=== PATIENT | male | born 1945 | race African-American/Black ===

== ENCOUNTER 2016-09-06 08:38 | Day surgery (SDC) | payer OTHER, MEDICARE ==
[~2016-09-06] VITALS: Ht 175.3 cm; Wt 83.9 kg
[~2016-09-06 08:38] MED LIST: ACETYLCHOLINE CHLORIDE 1:100 20 MG/2 ML INTRAOCULAR KIT. ONE; AMLO5TAB2 PO; ASPI81TA2 PO; BALANCED SALT IRRIG OPHTH SOLN 15 ML BOTTLE. ONE; BUPIVACAINE MPF 0.75% IRR ONE; CHONDROIT-SOD-HYALURONATE KIT. ONE; CIPROFLOXACIN 0.3% OPHTH SOLUTION 5ML BOTTLE. OD ONE; CRESTOR5 MG PO; DEXAMETHASONE SOD PHOS 4 MG/ML VIAL ONE; EPINEPHRINE IRR ONE; GENTAMICIN SULFATE 80 MG/2 ML VIAL. ONE; HYDR-971 PO; HYDROmorphone 2 MG/ML VIAL IV PRN; IV RINGERS,LACTATED 1000ML 1,000 ML IV SCH; LIDOCAINE 1% 1 ML SYRINGE. ID PRN; LIDOCAINE 1% IRR ONE; LISI-338 PO; MORPHINE SULFATE 2 MG/ML DISP.SYRIN. IV PRN; NEO/POLYMYX/DEXAMETH OPHTH OINTMENT 3.5GM TUBE. ONE; ONDANSETRON PF 4 MG/2 ML VIAL. IV PRN; PROCHLORPERAZINE 10 MG/2 ML VIAL. IV PRN; PROPARACAINE 0.5% OPHTH SOLUTION 15ML BOTTLE. OD ONE; TAMS0.4C97 PO; [UNRECOGNIZED DRUG - OTHER] IRR ONE; fentaNYL PF VIAL 100 MCG/2 ML VIAL IV PRN
[2016-09-06] MEDS ORDERED: LIDOCAINE 2% JELLY 6ML IN APPLICATOR. ONE (08:59)
[2016-09-06] MEDS: CYCLOPENTOLATE 1% OPTH SOLUTION 2ML BOTTLE. OD SCH ×3 (09:27→09:39)
[2016-09-06] MEDS: PHENYLEPHRINE 2.5% OPHTH SOLUTION 2ML BOTTLE. OD SCH ×3 (09:28→09:38)
[2016-09-06] MEDS ORDERED: IV RINGERS,LACTATED 1000ML 1,000 ML IV ONE (09:30)
[2016-09-06] MEDS ORDERED: LIDOCAINE 2% PF Vial for OR 5 ML VIAL. ONE (10:19)
[2016-09-06] MEDS ORDERED: LIDOCAINE 2% 20 ML VIAL. ONE (10:20)
[2016-09-06] MEDS ORDERED: LIDOCAINE 1% PF 2 ML VIAL. ONE (10:21)
[2016-09-06] MEDS ORDERED: TETRACAINE 0.5% OPHTH SOLUTION 4ML BOTTLE. OD ONE (10:30)
[2016-09-06] MEDS ORDERED: PROPOFOL 20 ML IV ONE (10:51)
[2016-09-06] MEDS ORDERED: LIDOCAINE 1% PF 5 ML VIAL. ONE (11:00)
[2016-09-06 11:11] VITALS: BP 145/68
[2016-09-06] MEDS ORDERED: DEXAMETHASONE 0.1% OPHTH SOLUTION 5ML BOTTLE. OD SCH (11:20)
--- NOTE | 2016-09-06 11:21 | PDOC4 ---
Operative Note Operative Note PREOPERATIVE DIAGNOSIS: Cataract, RIGHT EYE POSTOPERATIVE DIAGNOSIS: Cataract, RIGHT eye OPERATION: Phacoemulsification and posterior chamber intraocular lens implantation, RIGHT eye. ANESTHESIA: Topical/ local anesthesia SURGEON: Nida Gunter M.D. COMPLICATIONS: None. PROCEDURE: The patient was brought to the operating room. Right eye was prepped and draped in usual sterile conditions. Topical Lidocaine gel was applied to achieve topical anesthesia. Right eye was prepped and draped in usual sterile conditions. Lid speculum was inserted to open the Right eye. With keratome knife, 3.5 mm, limbal, clear corneal incision was placed, partial thickness at 12 o'clock position. With a keratome corneal flap was lifted and anterior chamber was entered to make 3.5 mm clear corneal incision. Viscoat was injected in the anterior chamber. With cystotome, anterior capsulorrhexis was performed without complications. Hydrodissection was done to loosen the cataractous lens from the capsule. Using phacoemulsification tip inserted into the anterior chamber, the lens was sculpted and removed in 45 seconds without any complications. The remaining of lens cortex were aspirated out using irrigation aspiration apparatus. Posterior capsule and capsulorrhexis were intact. Provisc was injected into the capsular bag to push back the posterior capsule and to deepen the chamber. Posterior chamber intraocular lens was loaded on its stock patch sawyer and it was slipped into the capsular bag. It was rotated with Sinskey hook to position it in the center. Excess of Viscoat and Provisc were aspirated out using irrigation and aspiration apparatus. Miochol was injected to constrict the pupil to 3 mm size round pupil. BSS was injected in the anterior chamber to wash the anterior chamber. Some more BSS was injected into the corneal lip of the wound to make a watertight wound closure. More BSS was injected in the anterior chamber. The wound was checked. There was no leakage noticed. Half cc of Gentamicin/Decadron was injected sub conjunctivally in nasal inferior fornix. Subconjunctival hemorrhage developed at the injection site. Lid speculum was removed. Maxitrol eye ointment was placed into the right eye. Right eye was protected with patch and shield and the patient left the operating room in good condition. There were no complications. NIDA GUNTER MD September 06, 2016 11:21
[2016-09-06] MEDS ORDERED: DEXA5DRO OP (11:28)
[2016-09-06] MEDS ORDERED: CIPR10DR OD (11:29)
[2016-09-06] MEDS ORDERED: ACET500T33 PO (11:30)
== END 2016-09-06 11:57 | disposition home or self-care (01) ==
LOC: SURG 08:38
PROVIDERS: ATTEND Ophthalmology
DX: H26.9 Unspecified cataract (principal); I25.10 Atherosclerotic heart disease of native coronary artery without angina pectoris; M19.90 Unspecified osteoarthritis, unspecified site; I10 Essential (primary) hypertension; Z87.442 Personal history of urinary calculi; Z87.891 Personal history of nicotine dependence; Z72.0 Tobacco use
CPT/HCPCS: 66982; C1780; J0171; J1100; J1580; J2704; J3490

== ENCOUNTER → 2017-02-06 | Outpatient (CLI) | payer OTHER, MEDICARE ==
[~2017-02-06] MED LIST changes: +ACET500T33 PO; -ACETYLCHOLINE CHLORIDE 1:100 20 MG/2 ML INTRAOCULAR KIT. ONE; +ASPI-630 PO; -ASPI81TA2 PO; -BALANCED SALT IRRIG OPHTH SOLN 15 ML BOTTLE. ONE; -BUPIVACAINE MPF 0.75% IRR ONE; -CHONDROIT-SOD-HYALURONATE KIT. ONE; +CIPR10DR OD; -CIPROFLOXACIN 0.3% OPHTH SOLUTION 5ML BOTTLE. OD ONE; +DEXA5DRO OP; -DEXAMETHASONE SOD PHOS 4 MG/ML VIAL ONE; -EPINEPHRINE IRR ONE; -GENTAMICIN SULFATE 80 MG/2 ML VIAL. ONE; -HYDROmorphone 2 MG/ML VIAL IV PRN; -IV RINGERS,LACTATED 1000ML 1,000 ML IV SCH; -LIDOCAINE 1% 1 ML SYRINGE. ID PRN; -LIDOCAINE 1% IRR ONE; -MORPHINE SULFATE 2 MG/ML DISP.SYRIN. IV PRN; -NEO/POLYMYX/DEXAMETH OPHTH OINTMENT 3.5GM TUBE. ONE; -ONDANSETRON PF 4 MG/2 ML VIAL. IV PRN; -PROCHLORPERAZINE 10 MG/2 ML VIAL. IV PRN; -PROPARACAINE 0.5% OPHTH SOLUTION 15ML BOTTLE. OD ONE; -[UNRECOGNIZED DRUG - OTHER] IRR ONE; -fentaNYL PF VIAL 100 MCG/2 ML VIAL IV PRN
[2017-02-06 08:57] LABS: BASO % 1 % (0-3); EOS % 3 % (0-3); HEMATOCRIT 42.1 % (39.0-53.0); HEMOGLOBIN 13.8 g/dL (13.0-17.5); LYMPH # 1.3 x10^3/uL (1.0-4.8); LYMPH % 30 % (24-48); MEAN CORPUSCULAR HEMOGLOBIN 31 pg (25-35); MEAN CORPUSCULAR HGB CONC 33 g/dL (31-37); MEAN CORPUSCULAR VOLUME 94 fL (79-100); MONO % 14 % (0-9); NEUT % 51 % (31-73); PLATELET COUNT 218 x10^3/uL (140-400); RED BLOOD COUNT 4.49 x10^6/uL (4.30-5.70); RED CELL DISTRIBUTION WIDTH 13.2 % (11.5-14.5); WHITE BLOOD COUNT 4.2 x10^3/uL (4.0-11.0)
[2017-02-06 10:34] LABS: FREE T4 0.93 ng/dL (0.76-1.46)
[2017-02-06 10:54] LABS: CALCIUM 9.5 mg/dL (8.5-10.1); GFR 89.1; POTASSIUM 4.1 mmol/L (3.5-5.1); TOTAL BILIRUBIN 0.5 mg/dL (0.2-1.0); TOTAL PROTEIN 8.2 g/dL (6.4-8.2)
[2017-02-06 10:55] LABS: CHOLESTEROL/HDL RATIO 3.7
== END | disposition home or self-care (01) ==
LOC: SPEC 08:17
PROVIDERS: ATTEND Family Medicine
DX: Z12.5 Encounter for screening for malignant neoplasm of prostate (principal); I10 Essential (primary) hypertension
CPT/HCPCS: 36415; 80053; 80061; 83036; 84439; 84443; 85025

== ENCOUNTER → 2017-08-15 | Outpatient (CLI) | payer OTHER, MEDICARE ==
[2017-08-15] MEDS: IOHEXOL 300 MG/ML 10ML VIAL. IJ (09:51)
[2017-08-15] MEDS: BUPIVACAINE 0.5% 50 ML VIAL. IJ (09:52)
[2017-08-15] MEDS: methylPREDNISolone ACETATE 80 MG/ML VIAL. INJ (09:52)
== END | disposition home or self-care (01) ==
LOC: RAD 08:12
DX: M25.551 Pain in right hip (principal); I25.10 Atherosclerotic heart disease of native coronary artery without angina pectoris; I10 Essential (primary) hypertension; M19.90 Unspecified osteoarthritis, unspecified site; F17.200 Nicotine dependence, unspecified, uncomplicated; M16.11 Unilateral primary osteoarthritis, right hip; Z95.1 Presence of aortocoronary bypass graft; Z87.442 Personal history of urinary calculi
CPT/HCPCS: 20605; 77002; J1040; J3490; Q9967

== ENCOUNTER → 2018-03-07 | Outpatient (CLI) | payer OTHER, MEDICARE ==
[2017-03-02 11:59] VITALS: BP 155/79
[~2018-03-07] MED LIST changes: -AMLO5TAB2 PO; +AMLO5TAB7 PO; +AMLODIPINE PO; +BENAZEPRIL PO
[2018-03-07 10:41] LABS: BASO % 1 % (0-3); EOS # 0.1 x10^3/uL (0.0-0.7); EOS % 2 % (0-3); HEMATOCRIT 41.9 % (39.0-53.0); HEMOGLOBIN 14.2 g/dL (13.0-17.5); LYMPH # 0.6 x10^3/uL (1.0-4.8); LYMPH % 16 % (24-48); MEAN CORPUSCULAR HEMOGLOBIN 31 pg (25-35); MEAN CORPUSCULAR HGB CONC 34 g/dL (31-37); MEAN CORPUSCULAR VOLUME 93 fL (79-100); MONO # 0.4 x10^3/uL (0.0-1.1); MONO % 10 % (0-9); NEUT # 2.7 x10^3uL (1.8-7.7); NEUT % 72 % (31-73); PLATELET COUNT 209 x10^3/uL (140-400); RED BLOOD COUNT 4.51 x10^6/uL (4.30-5.70); WHITE BLOOD COUNT 3.8 x10^3/uL (4.0-11.0)
[2018-03-07 11:05] LABS: GFR 88.9; POTASSIUM 4.1 mmol/L (3.5-5.1); TOTAL BILIRUBIN 0.7 mg/dL (0.2-1.0); TOTAL PROTEIN 8.2 g/dL (6.4-8.2); URIC ACID 4.8 mg/dL (3.5-7.2)
[2018-03-07 11:10] LABS: CHOLESTEROL/HDL RATIO 3.1
[2018-03-07 12:11] LABS: BILIRUBIN,URINE NEGATIVE (NEG); CLARITY,URINE CLEAR; COLOR,URINE YELLOW; NITRITE,URINE NEGATIVE (NEG); PH,URINE 5.5; PROTEIN,URINE NEGATIVE (NEG-TRACE)
[2018-03-07 12:29] LABS: BACTERIA,URINE 0 /HPF (0-FEW); WBC,URINE RARE /HPF (0-4)
[2018-03-07 19:15] LABS: HEMOGLOBIN A1C 5.7 % (4.8-5.6)
== END | disposition home or self-care (01) ==
LOC: SPEC 10:17
PROVIDERS: ATTEND Family Medicine
DX: Z12.5 Encounter for screening for malignant neoplasm of prostate (principal); Z12.11 Encounter for screening for malignant neoplasm of colon; I10 Essential (primary) hypertension; M17.10 Unilateral primary osteoarthritis, unspecified knee; M25.551 Pain in right hip; I25.10 Atherosclerotic heart disease of native coronary artery without angina pectoris; M19.90 Unspecified osteoarthritis, unspecified site; F17.200 Nicotine dependence, unspecified, uncomplicated; Z95.1 Presence of aortocoronary bypass graft; Z95.5 Presence of coronary angioplasty implant and graft
CPT/HCPCS: 36415; 80053; 80061; 81001; 82306; 82607; 83036; 83880; 84443; 84550; 85025; G0103

== ENCOUNTER → 2018-03-13 | Outpatient (CLI) | payer OTHER, MEDICARE ==
[2017-03-02 11:59] VITALS: BP 155/79
[~2018-03-13] MED LIST changes: +AMLO1TAB95 PO; +IOHEXOL 180 MG/ML 10 ML VIAL. ONE; +TRAM50TA PO
--- NOTE | 2018-03-13 17:26 | PAIN ---
DATE OF SERVICE: 03/13/2018 INITIAL CONSULTATION FOR PAIN CLINIC CHIEF COMPLAINT: Right hip and lower extremity pain. HISTORY OF PRESENT ILLNESS: The patient is a 72-year-old male who presents with history of pain in the right hip with walking, standing for about 2 years now. The patient reports it began gradually, not a result of any specific injury or action he is aware of, worse in the right hip with walking, standing, especially with climbing stairs or putting all his weight on one foot such as stepping up on a curb. The patient reports it does not awaken him from sleep at night. It does not affect his bowel or bladder control, but does affect his ability to walk significantly. It is getting worse over time. The patient reports he has had some cortisone injections in the past, which helped. Recently, he had one in his left knee, which was helpful as well, but over the hip, he did have a cortisone injection in 12/2017, which helped temporarily for about one month. The patient reports again much worse with walking, standing, putting all his weight on his right leg with some radiation to the right groin as well, mostly in the deep hip itself. The patient reports it is throbbing, tingling with some aching quality, again worse with walking, standing, better with sitting or lying down, does not awaken him from sleep at night. The patient's x-ray show with respect to the right hip advanced degenerative joint disease with moderate to severe arthritic changes in the right hip itself. The patient's disability rate 0-10, 10 being the worst, is a 7 with family and home responsibilities, recreation, social activity and occupation, 3 with sexual behavior, 1 with self care and 1 with life support activities. The patient reports no symptoms on the left side as well. PAST MEDICAL HISTORY: Significant for hypertension, arthritis, coronary artery disease. PREVIOUS SURGERY: Include cardiac bypass and a fractured jaw, which was ORIF in 1959. CURRENT MEDICATIONS: Include tramadol, and amlodipine. ALLERGIES: THE PATIENT IS ALLERGIC TO PENICILLIN. FAMILY HISTORY: Significant for no major medical problems or conditions he is aware of. SOCIAL HISTORY: The patient does not drink alcohol, does not smoke, does not use any illegal, illicit or recreational drugs. He is and lives with his spouse, has one child, living at home, lives locally in [place], [place]. REVIEW OF SYSTEMS: The patient's review of systems is positive for those items mentioned in history of present illness. All systems reviewed and otherwise negative. It is complete, full and well documented on the patient's chart. PHYSICAL EXAMINATION: VITAL SIGNS: The patient's blood pressure is 125/95, pulse 65, respirations 16, temperature 97.2 degrees Fahrenheit, height is 5 feet 9 inches, weight 171 pounds. GENERAL: The patient is awake, alert, oriented, appropriate, very pleasant demeanor. HEENT: Head shows normocephalic, atraumatic. Extraocular movements are intact and symmetrical. Oral cavity: Mucous membranes moist and pink. Dentition is intact. NECK: Shows anterior throat supple without palpable lymphadenopathy noted. Swallow reflex symmetrical. CHEST: Shows normal on inspection. Breath sounds clear to auscultation bilaterally. HEART: Shows S1, S2 clear. No murmurs auscultated. ABDOMEN: Soft, nontender, nondistended. No palpable organomegaly is noted. No rebound or guarding demonstrated. BACK: Shows spine grossly in the midline, normal appearing thoracic kyphosis and lumbar lordotic curvature. Lumbar paraspinous muscle shows symmetrical on inspection. On palpation shows some moderate tenderness only diffusely in the low lumbar distribution without radiation. The patient's back shows good rotational motion both extension and flexion, right and left lateral rotation without significant difficulty. EXTREMITIES: The patient's lower extremities show deep tendon reflexes at 1+ in the patellar and tendo-calcaneus tendons. Motor exam is strong with 5/5 dorsiflexion, extension, quadriceps and hamstring flexion. Peripheral pulses are 1+ posterior tibial. No peripheral edema is noted bilaterally. The patient's Gaenslen's maneuver is negative bilaterally. Foreign's maneuver, however, is positive on the right with external rotation and posterior displacement of the right hip with significant pain in the joint itself, left side is negative. The patient is able to stand, stand on his toes without significant difficulty, walks with a significant antalgic gait; however, does appear to favor the right lower extremity fairly significantly. He is not using any assistive devices to ambulate, however. SKIN: Warm and dry, good turgor. No edema, sores, rashes or bruising. IMPRESSION: This is a 72-year-old male with, 1. Approximate 2-year history of pain right hip with radiation to the groin and leg as noted. 2. X-rays of the right hip as noted. 3. Hypertension. 4. Arthritis. 5. Coronary artery disease. PLAN: Options were discussed with the patient including conservative medical management, physical therapy, interventional techniques. He would like to pursue interventional techniques. We discussed an intra-articular joint injection with Monovisc as recommended through his orthopedic surgeon. The patient would like to proceed with this. Risks were discussed including but not limited to bleeding, infection, possibility of intravascular injection sequelae, spread of local anesthetic and numbness, exposure to fluoroscopy as well as poor results regarding pain control. The patient understands and wished to proceed. The patient will return to clinic in approximately 4 weeks or as necessary. He was counseled on activity level as well as side effects to be aware of. DIAGNOSIS: Primary osteoarthritis, right hip joint with right hip joint pain. PROCEDURE: Right intraarticular hip joint injection with Monovisc under sterile prep and drape using local anesthetic. MEDICATION INJECTED: A total of 4 mL of Monovisc and total of 2 mL of Isovue for contrast. CONDITION AT DISCHARGE: Stable. The patient tolerated the procedure well, had no complications. TY GOMEZ MD DR: FRED/razia JOB#: [id number] / [id number] MATTHEW Chaparro MD
== END | disposition home or self-care (01) ==
LOC: PNCL 08:05
PROVIDERS: ATTEND Anesthesiology
DX: M16.11 Unilateral primary osteoarthritis, right hip (principal); I10 Essential (primary) hypertension; I25.10 Atherosclerotic heart disease of native coronary artery without angina pectoris; Z95.1 Presence of aortocoronary bypass graft; Z98.890 Other specified postprocedural states; Z79.899 Other long term (current) drug therapy; Z88.0 Allergy status to penicillin; Z88.8 Allergy status to other drugs, medicaments and biological substances
CPT/HCPCS: 20610; 77002; Q9965

== ENCOUNTER 2018-06-03 11:29 | Emergency (ER) | payer OTHER, MEDICARE ==
[~2018-06-03] VITALS: Ht 175.3 cm; Wt 81.6 kg
[~2018-06-03 11:29] MED LIST changes: +AMLO5TAB10 PO; -AMLO5TAB7 PO; +HYDR-3164 PO; -HYDR-971 PO; -IOHEXOL 180 MG/ML 10 ML VIAL. ONE
[2018-06-03] MEDS ORDERED: POLY17PO29 PO (12:56)
[2018-06-03 12:57] VITALS: BP 137/62
--- NOTE | 2018-06-03 12:57 | PHYS DOC ---
Past Medical History Past Medical History: CAD, High Cholesterol, Hypertension Additional Past Medical Histor: "need hip replacement"- R hip Past Surgical History: Coronary Bypass Surgery Additional Past Surgical Histo: STENT PLACEMENT Additional Information: Denies smoking Alcohol Use: None Drug Use: None Adult General Chief Complaint Chief Complaint: CONSTIPATION HPI HPI Patient is a 73 year old male who presents with complaining of constipation. Patient states he usually has bowel movement every 2 or 3 days. Patient states he took Percocet recently for hip pain and for the last 10 days was not able to have a bowel movement. Patient complaining of anal pain and bleeding while he while he strains himself to have a bowel movement and even he took Laxative today, he was not able to have a bowel movement. Patient complaining of discomfort feeling in his abdomen without nausea and vomiting, fever and chills , urinary symptom. Review of Systems Review of Systems Constitutional: Denies fever or chills [] Eyes: Denies change in visual acuity, redness, or eye pain [] HENT: Denies nasal congestion or sore throat [] Respiratory: Denies cough or shortness of breath [] Cardiovascular: No additional information not addressed in HPI [] GI: Reports constipation and abdominal pain, denies nausea, vomiting, bloody stools or diarrhea [] : Denies dysuria or hematuria [] Musculoskeletal: Denies back pain or joint pain [] Integument: Denies rash or skin lesions [] Neurologic: Denies headache, focal weakness or sensory changes [] Endocrine: Denies polyuria or polydipsia [] All other systems were reviewed and found to be within normal limits, except as documented in this note. Allergies Allergies Allergies Coded Allergies Type Severity Reaction Last Updated Verified Penicillins Allergy Intermediate rash 09/06/16 Yes esomeprazole Allergy Intermediate rash 09/06/16 Yes Physical Exam Physical Exam Constitutional: Well developed, well nourished, moderate acute distress, non- toxic appearance. [] HENT: Normocephalic, atraumatic, oropharynx moist. Eyes: PERRLA, EOMI, conjunctiva normal, no discharge. [] Neck: Normal range of motion, no tenderness, supple, no stridor. [] Cardiovascular:Heart rate regular rhythm, no murmur [] Lungs & Thorax: Bilateral breath sounds clear to auscultation [] Abdomen: Bowel sounds hyperactive, mildly distended with gas,, soft, no tenderness, no masses, no pulsatile masses. Rectal exam with present of subassemblies wirer showed inflamed anal area with very hard stool in the rectum, patient was not able to tolerate removing the stool.] Skin: Warm, dry, no erythema, no rash. [] Back: No tenderness, no CVA tenderness. [] Extremities: No tenderness, no cyanosis, no clubbing, ROM intact, no edema. [] Neurologic: Alert and oriented X 3, normal motor function, normal sensory function, no focal deficits noted. [] Psychologic: Affect normal, judgement normal, mood normal. [] Current Patient Data Vital Signs Vital Signs Date Time Temp Pulse Resp B/P (MAP) Pulse Ox O2 Delivery O2 Flow Rate FiO2 06/03/18 11:40 98.1 66 16 108/60 (76) 96 Room Air 98.1 EKG EKG [] Radiology/Procedures Radiology/Procedures [] Course & Med Decision Making Course & Med Decision Making Evaluation of patient in ER showed 72-year-old male patient presented to ER with constipation after taking pain medication. Patient had very hard stool in rectum and had enema with milk of molasses with having a large bowel movement and improvement of his condition. Plan discharge patient home to diagnose of constipation and prescription of MiraLAX. Dragon Disclaimer Dragon Disclaimer This electronic medical record was generated, in whole or in part, using a voice recognition dictation system. Departure Departure Impression: Primary Impression: Fecal impaction in rectum Additional Impressions: Constipation Anal or rectal pain Disposition: 01 HOME, SELF-CARE (@1252) Condition: IMPROVED Referrals: RIKY MARTINO (PCP) Patient Instructions: Constipation, Adult, Fecal Impaction, Sitz Bath Additional Instructions: Drink plenty of liquids Follow-up with your primary care physician in 3-5 days Return to ER if not getting better Scripts Polyethylene Glycol 3350 (MIRALAX) 17 Gm Powd.pack 1 PACKET PO DAILY, #30 PACKET 0 Refills Prov: RUPESH GRANADOS MD 06/03/18 Problem Qualifiers RUPESH GRANADOS MD Jun 03, 2018 12:57
== END 2018-06-03 13:06 | disposition home or self-care (01) ==
LOC: ER 11:29
DX: K59.00 Constipation, unspecified (principal); K62.89 Other specified diseases of anus and rectum; E78.00 Pure hypercholesterolemia, unspecified; I10 Essential (primary) hypertension; Z95.5 Presence of coronary angioplasty implant and graft; I25.10 Atherosclerotic heart disease of native coronary artery without angina pectoris; Z95.1 Presence of aortocoronary bypass graft; Z88.0 Allergy status to penicillin; Z88.8 Allergy status to other drugs, medicaments and biological substances
CPT/HCPCS: 99284

== ENCOUNTER → 2018-07-25 | Outpatient (CLI) | payer OTHER, MEDICARE ==
[~2018-07-25] MED LIST changes: +POLY17PO29 PO
[2018-07-25 08:12] LABS: BASO # 0.1 x10^3/uL (0.0-0.2); BASO % 2 % (0-3); EOS # 0.2 x10^3/uL (0.0-0.7); EOS % 4 % (0-3); HEMATOCRIT 42.5 % (39.0-53.0); HEMOGLOBIN 13.6 g/dL (13.0-17.5); LYMPH # 1.1 x10^3/uL (1.0-4.8); LYMPH % 27 % (24-48); MEAN CORPUSCULAR HEMOGLOBIN 30 pg (25-35); MEAN CORPUSCULAR HGB CONC 32 g/dL (31-37); MEAN CORPUSCULAR VOLUME 94 fL (79-100); MONO # 0.5 x10^3/uL (0.0-1.1); MONO % 12 % (0-9); NEUT # 2.2 x10^3uL (1.8-7.7); NEUT % 55 % (31-73); PLATELET COUNT 197 x10^3/uL (140-400); RED BLOOD COUNT 4.52 x10^6/uL (4.30-5.70); RED CELL DISTRIBUTION WIDTH 13.9 % (11.5-14.5)
[2018-07-25 08:14] LABS: BILIRUBIN,URINE NEGATIVE (NEG); CLARITY,URINE CLEAR; COLOR,URINE YELLOW; NITRITE,URINE NEGATIVE (NEG); PROTEIN,URINE NEGATIVE (NEG-TRACE)
[2018-07-25 08:38] LABS: ALBUMIN 3.7 g/dL (3.4-5.0); C-REACTIVE PROTEIN 1.5 mg/L (0-3.3); CALCIUM 8.9 mg/dL (8.5-10.1); CREATININE 0.9 mg/dL (0.7-1.3); GFR 100.1; POTASSIUM 3.7 mmol/L (3.5-5.1); TOTAL BILIRUBIN 0.3 mg/dL (0.2-1.0); TOTAL PROTEIN 7.3 g/dL (6.4-8.2)
[2018-07-25 08:40] LABS: CHOLESTEROL/HDL RATIO 2.4
[2018-07-25 08:44] LABS: BACTERIA,URINE 0 /HPF (0-FEW); PROTHROMBIN TIME PATIENT 13.4 SEC (11.7-14.0); RBC,URINE 20-40 /HPF (0-2); WBC,URINE 0 /HPF (0-4)
== END | disposition home or self-care (01) ==
LOC: SPEC 07:44
PROVIDERS: ATTEND Internal Medicine Cardiovascular Disease
DX: I25.810 Atherosclerosis of coronary artery bypass graft(s) without angina pectoris (principal)
CPT/HCPCS: 36415; 80053; 80061; 81001; 82550; 85025; 85610; 85651; 85730; 86140; 87086

== ENCOUNTER → 2018-08-02 | Outpatient (CLI) | payer OTHER, MEDICARE | END | disposition home or self-care (01) | LOC: SPEC 09:14 | PROVIDERS: ATTEND Urology | DX: Z12.5 Encounter for screening for malignant neoplasm of prostate (principal) | CPT/HCPCS: 36415; G0103 ==

== ENCOUNTER → 2018-08-08 | Outpatient (CLI) | payer OTHER, MEDICARE ==
[~2018-08-08] MED LIST changes: +IOHEXOL 300 MG/ML 50 ML VIAL. IV ONE
--- NOTE | 2018-08-09 12:37 | KCIC ---
PQRS Compliance Statement: One or more of the following individualized dose reduction techniques were utilized for this examination: 1. Automated exposure control 2. Adjustment of the mA and/or kV according to patient size 3. Use of iterative reconstruction technique CT abdomen/pelvis with and without contrast 08/08/2018 10:29 AM INDICATION: Microscopic hematuria COMPARISON: CT abdomen/pelvis March 01, 2016 TECHNIQUE: Multiple axial CT images of the abdomen and pelvis were obtained before and after the intravenous administration of 98 mL Omnipaque [address] urogram protocol. Coronal and sagittal reformats are provided. FINDINGS: Lung bases are clear. Heart size within normal limits. Median sternotomy changes are partially profiled. Liver, spleen, bilateral adrenal glands and pancreas are normal in appearance. Suspect calcified gallstones within the gallbladder. Abdominal aorta is normal in course and caliber. There are no pathologically enlarged lymph nodes in abdomen and pelvis. There is no free fluid or free intraperitoneal air. There is symmetric enhancement of the renal parenchyma. There is a 9 mm calculus in inferior pole the right kidney. Bilateral simple appearing renal cysts are identified measuring up to 4.4 cm the left kidney and 2.0 cm in the interpolar right kidney. There is an 8 mm calculus at the left ureterovesicular junction resulting in mild left hydroureter. No definite hydronephrosis. No suspicious urothelial thickening is identified involving the urinary bladder. Mild colonic diverticulosis is identified. Small and large bowel are normal in caliber. There is no evidence for bowel obstruction. There are no pericolonic inflammatory changes. A normal, nondilated appendix is visualized without adjacent inflammatory changes. No suspicious pelvic mass is identified. Mild prominence of the prostate gland which measures 4.0 x 4.8 cm. Advanced osteoarthrosis of the right hip is visualized. There is advanced degenerative disc disease at L4-L5 and L5-S1. Mild ankylosis of the superior left sacral iliac joint is noted. IMPRESSION: There is a 8 mm calculus at the distal left ureter, immediately proximal to the left ureterovesicular junction. Findings result in mild left hydroureter without definite hydronephrosis. Findings may be nonobstructive. Correlate with patient's symptoms. No definite urothelial irregularity or additional filling defect is identified within the upper tracts and urinary bladder. Electronically signed by: Silvia Otero MD (08/09/2018 12:34 PM) [id number]
== END | disposition home or self-care (01) ==
LOC: KCIC CT 09:15
PROVIDERS: ATTEND Urology
DX: N20.2 Calculus of kidney with calculus of ureter (principal); N13.4 Hydroureter; K57.30 Diverticulosis of large intestine without perforation or abscess without bleeding; N28.1 Cyst of kidney, acquired; M16.11 Unilateral primary osteoarthritis, right hip; M51.37 Other intervertebral disc degeneration, lumbosacral region; M43.28 Fusion of spine, sacral and sacrococcygeal region
CPT/HCPCS: 74178; 82565; Q9967

== ENCOUNTER → 2018-08-22 | Outpatient (CLI) | payer OTHER, MEDICARE ==
[~2018-08-22] MED LIST changes: -IOHEXOL 300 MG/ML 50 ML VIAL. IV ONE
--- NOTE | 2018-08-22 17:30 | KCIC ---
AP view of the abdomen Clinical indications: Distal left ureteral stone seen on CT study. COMPARISON: CT study dated August 08 2018. FINDINGS: Again seen is a distal left ureteral stone at the UVJ which measures 8 mm in size. There are additional calcified phleboliths of the left side of the anatomic pelvis. Moderate amount of fecal retention is seen throughout the colon. No obstructive bowel pattern is evident. Degenerative osteoarthritis of both hip joints is seen worse on the right side. IMPRESSION: Persistent 8 mm distal left ureteral stone. Electronically signed by: Manjeet Chamberlain MD (08/22/2018 5:27 PM) [place] [id number]
== END | disposition home or self-care (01) ==
LOC: KCIC 10:26
PROVIDERS: ATTEND Urology
DX: N20.1 Calculus of ureter (principal); I87.8 Other specified disorders of veins; K59.00 Constipation, unspecified
CPT/HCPCS: 74018

== ENCOUNTER → 2018-09-18 | Outpatient (CLI) | payer OTHER, MEDICARE ==
--- NOTE | 2018-09-18 09:54 | KCIC ---
EXAM: Abdomen, single view. HISTORY: Left ureteral stone. Lithotripsy. COMPARISON: 08/08/2018 and 08/22/2018. FINDINGS: A frontal view of the abdomen is obtained. The previously demonstrated distal left ureteral stone is no longer seen. There is a small density in the region of the prior stone which a similar configuration to the prior stone, possibly due to stone fragments overlying artifact. There are small left greater than right pelvic phleboliths which are stable in appearance. There has been no change in a cluster of stones within the lower pole the right kidney measuring 10 mm. There is a nonobstructive bowel gas pattern. There is right greater than left hip osteoarthritis and degenerative change involving the lower lumbar levels. IMPRESSION: 1. Nonvisualization of a previously demonstrated distal left ureteral stone. There is a small density in the region of the prior stone which demonstrates similar configuration to the prior stone, possibly due to stone fragmentation or overlying artifact. Correlate with urinalysis. 2. Stable cluster of stones overlying the lower pole the right kidney. Electronically signed by: Aishwarya Millan MD (09/18/2018 9:51 AM) [id number]
== END | disposition home or self-care (01) ==
LOC: KCIC 09:00
PROVIDERS: ATTEND Urology
DX: I87.8 Other specified disorders of veins (principal); M16.12 Unilateral primary osteoarthritis, left hip; M47.816 Spondylosis without myelopathy or radiculopathy, lumbar region
CPT/HCPCS: 74018

== ENCOUNTER → 2018-11-07 | Outpatient (CLI) | payer OTHER, MEDICARE ==
--- NOTE | 2018-11-07 16:49 | KCIC ---
Left lower extremity venous doppler ultrasound Indication: Left leg swelling and pain. Technique: Color Doppler, grayscale, and spectral waveform analysis is used to evaluate the left femoral and popliteal veins. Findings: No evidence of deep venous thrombosis. Normal response to augmentation, normal compressibility and normal phasicity is demonstrated. Visualized calf veins are patent. Impression: Negative for deep venous thrombosis Electronically signed by: Hudson Pfeiffer MD (11/07/2018 4:46 PM) [facility]-[id number]
== END | disposition home or self-care (01) ==
LOC: KCIC US 15:14
PROVIDERS: ATTEND Family Medicine
DX: M79.605 Pain in left leg (principal); R22.42 Localized swelling, mass and lump, left lower limb
CPT/HCPCS: 93971

== ENCOUNTER → 2019-07-26 | Outpatient (CLI) | payer OTHER, MEDICARE ==
[2019-07-26 08:33] LABS: BASO # 0.1 x10^3/uL (0.0-0.2); BASO % 1 % (0-3); EOS # 0.2 x10^3/uL (0.0-0.7); EOS % 5 % (0-3); HEMOGLOBIN 13.1 g/dL (13.0-17.5); LYMPH # 1.2 x10^3/uL (1.0-4.8); LYMPH % 27 % (24-48); MEAN CORPUSCULAR HEMOGLOBIN 29 pg (25-35); MEAN CORPUSCULAR HGB CONC 32 g/dL (31-37); MEAN CORPUSCULAR VOLUME 91 fL (79-100); MONO # 0.5 x10^3/uL (0.0-1.1); MONO % 11 % (0-9); NEUT # 2.5 x10^3/uL (1.8-7.7); NEUT % 56 % (31-73); PLATELET COUNT 187 x10^3/uL (140-400); RED BLOOD COUNT 4.49 x10^6/uL (4.30-5.70); RED CELL DISTRIBUTION WIDTH 14.5 % (11.5-14.5); WHITE BLOOD COUNT 4.6 x10^3/uL (4.0-11.0)
[2019-07-26 08:36] LABS: BILIRUBIN,URINE NEGATIVE (NEG); CLARITY,URINE CLEAR; COLOR,URINE YELLOW; NITRITE,URINE NEGATIVE (NEG); PH,URINE 7.5 (<5.0-8.0); PROTEIN,URINE NEGATIVE (NEG-TRACE); UROBILINOGEN,URINE 0.2 mg/dL (0.2 mg/dL)
[2019-07-26 08:53] LABS: BACTERIA,URINE 0 /HPF (0-FEW); RBC,URINE >40 /HPF (0-2); SQUAMOUS EPITHELIAL CELL,UR OCC /LPF; WBC,URINE OCC /HPF (0-4)
[2019-07-26 08:54] LABS: ALBUMIN 3.7 g/dL (3.4-5.0); ALBUMIN/GLOBULIN RATIO 0.9 (1.0-1.7); CALCIUM 9.5 mg/dL (8.5-10.1); CHOLESTEROL/HDL RATIO 2.5; CREATININE 0.9 mg/dL (0.7-1.3); GFR 99.8; POTASSIUM 3.8 mmol/L (3.5-5.1); TOTAL BILIRUBIN 0.4 mg/dL (0.2-1.0); TOTAL PROTEIN 7.7 g/dL (6.4-8.2)
[2019-07-27 02:07] LABS: HEMOGLOBIN A1C 5.5 % (4.8-5.6)
== END | disposition home or self-care (01) ==
LOC: SPEC 08:12
PROVIDERS: ATTEND Family Medicine
DX: I10 Essential (primary) hypertension (principal); I42.0 Dilated cardiomyopathy
CPT/HCPCS: 36415; 80053; 80061; 81001; 82306; 82607; 83036; 83880; 84436; 84443; 85025

== ENCOUNTER → 2019-11-07 | Outpatient (CLI) | payer OTHER, MEDICARE ==
[~2019-11-07] MED LIST changes: -DEXA5DRO OP; +DEXA5DRO11 OP
--- NOTE | 2019-11-07 15:37 | KCIC ---
EXAM: ABDOMEN ONE VIEW. HISTORY: Right renal calculi, lithotripsy. COMPARISON: 09/18/2018. FINDINGS: A frontal view of the abdomen is obtained. 2 right renal calculi measure 6 mm. A small left renal calculus is suspected projecting over the left posterior 12th rib measuring 3 mm. No clear ureteral calculi are appreciated by radiographs. There are no distended small bowel loops. There is gas distally. A right total hip arthroplasty is partially visualized. Left hip osteoarthritis is moderate. There are moderate degenerative changes within the lower lumbar spine. IMPRESSION: 1. Right renal calculi measure up to 6 mm on the right and 3 mm on the left. Electronically signed by: Brian Starks MD (11/07/2019 3:34 PM) [id number]
== END | disposition home or self-care (01) ==
LOC: KCIC 10:41
DX: N20.0 Calculus of kidney (principal); R14.3 Flatulence; M16.12 Unilateral primary osteoarthritis, left hip; M47.816 Spondylosis without myelopathy or radiculopathy, lumbar region; Z96.641 Presence of right artificial hip joint; Z87.442 Personal history of urinary calculi
CPT/HCPCS: 74018

== ENCOUNTER 2019-11-24 18:50 | Emergency (ER) | payer OTHER, MEDICARE ==
[~2019-11-24] VITALS: Ht 175.3 cm; Wt 91.8 kg
--- NOTE | 2019-11-24 19:41 | PHYS DOC ---
Past Medical History Past Medical History: CAD, High Cholesterol, Hypertension Additional Past Medical Histor: "need hip replacement"- R hip Past Surgical History: Coronary Bypass Surgery Additional Past Surgical Histo: STENT PLACEMENT Smoking Status: Never Smoker Alcohol Use: None Drug Use: None General Adult EDM: Chief Complaint: CONSTIPATION HPI: HPI: The history was obtained from the patient and . Patient is a 74-year-old male with PMH recent left knee replacement, hypertension who presents with a chief complaint of constipation. Patient states he had his left knee replaced on November 09. He states he has been taking daily opiates since then. He states he has not had a bowel movement since 2012. He does note that he is passing flatus. He denies any vomiting. He states he has been tolerating food and drink well without difficulty. He states he had a separate place within the last year and also had opiate-induced constipation he thinks. He states eventually he did have a bowel movement after receiving enemas. He denies any previous history of bowel obstruction. Denies any fevers. Denies any dysuria or hematuria. Denies any back pain. He denies any chest pain or shortness of breath. Has tried apple cider vinegar liquid at home with minimal relief. No o ther complaints. Review of Systems: Review of Systems: Constitutional: Denies fever or chills. [] Eyes: Denies change in visual acuity. [] HENT: Denies nasal congestion or sore throat. [] Respiratory: Denies cough or shortness of breath. [] Cardiovascular: Denies chest pain or edema. [] GI: Positive for constipation : Denies dysuria. [] Musculoskeletal: Denies back pain or joint pain. [] Integument: Denies rash. [] Neurologic: Denies headache, focal weakness or sensory changes. [] Endocrine: Denies polyuria or polydipsia. [] Lymphatic: Denies swollen glands. [] Psychiatric: Denies depression or anxiety. [] Heart Score: Risk Factors: Risk Factors: DM, Current or recent (<one month) smoker, HTN, HLP, family history of CAD, obesity. Risk Scores: Score 0 - 3: 2.5% MACE over next 6 weeks - Discharge Home Score 4 - 6: 20.3% MACE over next 6 weeks - Admit for Clinical Observation Score 7 - 10: 72.7% MACE over next 6 weeks - Early Invasive Strategies Allergies: Allergies: Allergies Coded Allergies Type Severity Reaction Last Updated Verified Penicillins Allergy Intermediate rash 09/06/16 Yes esomeprazole Allergy Intermediate rash 09/06/16 Yes Physical Exam: PE: Constitutional: Well developed, well nourished, no acute distress, non-toxic appearance. [] HENT: Normocephalic, atraumatic, bilateral external ears normal, oropharynx moist, no oral exudates, nose normal. [] Eyes: PERRLA, EOMI, conjunctiva normal, no discharge. [] Neck: Normal range of motion, no tenderness, supple, no stridor. [] Cardiovascular:Heart rate regular rhythm, no murmur [] Lungs & Thorax: Bilateral breath sounds clear to auscultation [] Abdomen: Soft, nontender, nonacute abdomen. No involuntary guarding or rigidity noted. No acute peritonitis. Skin: Warm, dry, no erythema, no rash. [] Back: No tenderness, no CVA tenderness. [] Extremities: No tenderness, no cyanosis, no clubbing, ROM intact, no edema. [] Neurologic: Alert and oriented X 3, normal motor function, normal sensory function, no focal deficits noted. [] Psychologic: Affect normal, judgement normal, mood normal. [] Current Patient Data: Labs: Laboratory Tests Test 11/24/19 19:45 White Blood Count 8.0 x10^3/uL Red Blood Count 3.25 x10^6/uL Hemoglobin 10.3 g/dL Hematocrit 29.8 % Mean Corpuscular Volume 92 fL Mean Corpuscular Hemoglobin 32 pg Mean Corpuscular Hemoglobin Concent 35 g/dL Red Cell Distribution Width 14.8 % Platelet Count 458 x10^3/uL Neutrophils (%) (Auto) 80 % Lymphocytes (%) (Auto) 8 % Monocytes (%) (Auto) 10 % Eosinophils (%) (Auto) 2 % Basophils (%) (Auto) 1 % Neutrophils # (Auto) 6.4 x10^3/uL Lymphocytes # (Auto) 0.6 x10^3/uL Monocytes # (Auto) 0.8 x10^3/uL Eosinophils # (Auto) 0.1 x10^3/uL Basophils # (Auto) 0.1 x10^3/uL Sodium Level 138 mmol/L Potassium Level 4.3 mmol/L Chloride Level 102 mmol/L Carbon Dioxide Level 27 mmol/L Anion Gap 9 Blood Urea Nitrogen 18 mg/dL Creatinine 1.2 mg/dL Estimated GFR (Cockcroft-Gault) 71.6 Glucose Level 115 mg/dL Calcium Level 9.3 mg/dL Current Medications Medications (Trade) Dose Ordered Sig/Wilian Route PRN Reason Start Time Stop Time Status Last Admin Dose Admin Iohexol (Omnipaque 300 Mg/ml) 100 ml 1X ONCE IV 11/24/19 20:30 11/24/19 20:31 DC Iohexol (Omnipaque 300 Mg/ml) 100 ml 1X ONCE IV 11/24/19 20:30 11/24/19 20:31 DC Info (CONTRAST GIVEN -- Rx MONITORING) 1 each PRN DAILY PRN MC SEE COMMENTS 11/24/19 20:30 11/26/19 20:29 Magnesium Citrate (Citroma) 296 ml 1X ONCE PO 11/24/19 21:30 11/24/19 21:31 DC Docusate Sodium (Colace) 100 mg ONCE PO 11/24/19 21:30 EKG: EKG: [] Radiology/Procedures: Radiology/Procedures: [][facility] [address] [place], [place] [id number] IMAGING REPORT Signed PATIENT: MEHRDAD GOMEZ ACCOUNT: [id number] : 1945 LOCATION: ER AGE: 74 SEX: M EXAM STATUS: REG ER ORD. PHYSICIAN: JULI WOO DO REASON: abdominal pain with lack of bowel movement PROCEDURE: CT ABD PELV W/ IV CONTRST ONLY EXAM: CT Abdomen and Pelvis with IV contrast CLINICAL HISTORY: abdominal pain with lack of bowel movement COMPARISON: 08/08/2018 TECHNIQUE: Helical CT of the abdomen and pelvis was performed following the administration of IV contrast. Axial, coronal and sagittal reformatted images were generated. ---PQRS compliance statement - One or more of the following individualized dose reduction techniques were utilized for this study: 1. Automated exposure control 2. Adjustment of the mA and/or kV according to patient size 3. Use of iterative reconstruction technique--- FINDINGS: Lower chest: Lung bases are clear. Coronary artery calcifications are seen. Abdomen and pelvis: Liver and biliary system: No focal liver lesion although hepatic calcification likely calcified granuloma. Gallbladder is normal. No biliary ductal dilatation. Spleen: Unremarkable Pancreas: Unremarkable Adrenal glands: Unremarkable Kidneys: Symmetric nephrograms. Multiple bilateral renal cysts are seen. Nonobstructing right lower pole renal calculus. No hydronephrosis or hydroureter. Lymph nodes/retroperitoneum: No abdominal or pelvic lymphadenopathy by size criteria although a few mildly prominent retroperitoneal and iliac chain lymph nodes are seen. Resident Services Coordinator left iliac chain lymph node measures 9 mm short axis (8 mm on 08/08/2018). Vessels: Intermittent atherosclerotic calcifications of the aorta are seen. Streak artifact from the right total hip arthroplasty limits evaluation of the lower pelvis. Bowel/Peritoneal cavity: Moderate to large volume colonic stool content is seen. Mild infiltration is seen about the rectum which contains a large amount of stool. No bowel obstruction. Colonic diverticula are seen. No evidence for acute diverticulitis. Appendix is normal. No abdominal or pelvic ascites. Abdominal wall: Unremarkable Bladder: Diffuse bladder wall thickening may be seen with cystitis. Bones: There is a right hip arthroplasty. Left hip joint osteoarthritis. Degenerative changes of the spine are seen. No aggressive osseous lesion is seen. IMPRESSION: 1. Moderate to large volume colonic stool content is seen. This can be correlated for constipation. In addition infiltration is seen about the rectum containing large volume of stool which may be seen with stercoral colitis. 2. Nonobstructing left lower pole renal calculus. Electronically signed by: Joseph Samuels MD (11/24/2019 9:10 PM) [facility] DICTATED and SIGNED BY: JOSEPH SAMUELS MD DATE: 11/24/192109 Course & Med Decision Making: Course & Med Decision Making Pertinent Labs and Imaging studies reviewed. (See chart for details) Patient is a 74-year-old male who presents with chief complaint of constipation. He notes that he recently had his left knee replaced and has been taking opiates daily. He states he has a history of similar opiate-induced constipation with a hip replacement. He denies any vomiting or fevers. Laboratory Naus is grossly unremarkable. No leukocytosis. Initial vital signs unremarkable including non-tachycardic afebrile. CT abdomen pelvis was obtained. No signs of bowel obstruction. He does have significant stool burden. Patient was given laxatives in the emergency department. He did have a small bowel movement prior to discharge. He is requesting discharge home. I do feel this is reasonable to manage this as an outpatient. He will be discharged home with magnesium citrate as well as Colace. He was also given instructions on appropriate usage of MiraLAX. He states he does feel comfortable going home would like to try to manage this at home. He will be given a short prescription for enema as needed. Return precautions were discussed and understood. I encouraged him to cut back on his opiate usage. and patient are agreeable to this plan. Vital signs remained stable. Abdomen remains soft on repeat examination. Stable for discharge home. Dragon Disclaimer: Dragon Disclaimer: This electronic medical record was generated, in whole or in part, using a voice recognition dictation system. Departure Departure Disposition: HOME, SELF-CARE Condition: GOOD Referrals: RIKY MARTINO (PCP) Patient Instructions: Constipation, Adult Additional Instructions: Please follow-up with your primary care physician in the next 2 to 3 days. Scripts Na Kandis,M-B/Na Phos,Di-Ba (FLEET ENEMA) 133 Ml Enema 133 ML RC DAILY PRN for CONSTIPATION for 2 Days, #2 EACH Prov: JULI WOO DO 11/24/19 Docusate Sodium (COLACE) 100 Mg Capsule 1 CAP PO BID for 30 Days, #60 CAP 0 Refills Prov: JULI WOO DO 11/24/19 Magnesium Citrate (MAGNESIUM CITRATE) 296 Ml Solution 296 ML PO ONCE for 2 Days, #592 ML Prov: JULI WOO DO 11/24/19 Justicifation of Admission Dx: Justifications for Admission: Justification of Admission Dx: N/A JULI WOO DO Nov 24, 2019 19:41
[2019-11-24 19:53] LABS: BASO # 0.1 x10^3/uL (0.0-0.2); BASO % 1 % (0-3); EOS # 0.1 x10^3/uL (0.0-0.7); EOS % 2 % (0-3); HEMATOCRIT 29.8 % (39.0-53.0); HEMOGLOBIN 10.3 g/dL (13.0-17.5); LYMPH # 0.6 x10^3/uL (1.0-4.8); LYMPH % 8 % (24-48); MEAN CORPUSCULAR HEMOGLOBIN 32 pg (25-35); MEAN CORPUSCULAR HGB CONC 35 g/dL (31-37); MEAN CORPUSCULAR VOLUME 92 fL (79-100); MONO # 0.8 x10^3/uL (0.0-1.1); MONO % 10 % (0-9); NEUT # 6.4 x10^3/uL (1.8-7.7); NEUT % 80 % (31-73); PLATELET COUNT 458 x10^3/uL (140-400); RED BLOOD COUNT 3.25 x10^6/uL (4.30-5.70); RED CELL DISTRIBUTION WIDTH 14.8 % (11.5-14.5)
[2019-11-24 20:02] LABS: CALCIUM 9.3 mg/dL (8.5-10.1); CREATININE 1.2 mg/dL (0.7-1.3); GFR 71.6; POTASSIUM 4.3 mmol/L (3.5-5.1)
[2019-11-24] MEDS ORDERED: IOHEXOL 300 MG/ML 100ML VIAL. IV ONE ×2 (20:30)
[2019-11-24] MEDS ORDERED: CONTRAST GIVEN. MC PRN (20:30)
--- NOTE | 2019-11-24 21:14 | RAD ---
EXAM: CT Abdomen and Pelvis with IV contrast CLINICAL HISTORY: abdominal pain with lack of bowel movement COMPARISON: 08/08/2018 TECHNIQUE: Helical CT of the abdomen and pelvis was performed following the administration of IV contrast. Axial, coronal and sagittal reformatted images were generated. ---PQRS compliance statement - One or more of the following individualized dose reduction techniques were utilized for this study: 1. Automated exposure control 2. Adjustment of the mA and/or kV according to patient size 3. Use of iterative reconstruction technique--- FINDINGS: Lower chest: Lung bases are clear. Coronary artery calcifications are seen. Abdomen and pelvis: Liver and biliary system: No focal liver lesion although hepatic calcification likely calcified granuloma. Gallbladder is normal. No biliary ductal dilatation. Spleen: Unremarkable Pancreas: Unremarkable Adrenal glands: Unremarkable Kidneys: Symmetric nephrograms. Multiple bilateral renal cysts are seen. Nonobstructing right lower pole renal calculus. No hydronephrosis or hydroureter. Lymph nodes/retroperitoneum: No abdominal or pelvic lymphadenopathy by size criteria although a few mildly prominent retroperitoneal and iliac chain lymph nodes are seen. Machine Pan Greaser left iliac chain lymph node measures 9 mm short axis (8 mm on 08/08/2018). Vessels: Intermittent atherosclerotic calcifications of the aorta are seen. Streak artifact from the right total hip arthroplasty limits evaluation of the lower pelvis. Bowel/Peritoneal cavity: Moderate to large volume colonic stool content is seen. Mild infiltration is seen about the rectum which contains a large amount of stool. No bowel obstruction. Colonic diverticula are seen. No evidence for acute diverticulitis. Appendix is normal. No abdominal or pelvic ascites. Abdominal wall: Unremarkable Bladder: Diffuse bladder wall thickening may be seen with cystitis. Bones: There is a right hip arthroplasty. Left hip joint osteoarthritis. Degenerative changes of the spine are seen. No aggressive osseous lesion is seen. IMPRESSION: 1. Moderate to large volume colonic stool content is seen. This can be correlated for constipation. In addition infiltration is seen about the rectum containing large volume of stool which may be seen with stercoral colitis. 2. Nonobstructing left lower pole renal calculus. Electronically signed by: Joseph Maciel MD (11/24/2019 9:10 PM) [facility]
[2019-11-24] MEDS ORDERED: DOCUSATE SODIUM 100 MG CAPSULE. PO SCH (21:30)
[2019-11-24] MEDS ORDERED: MAGNESIUM CITRATE 296 ML SOLUTION. PO ONE (21:30)
[2019-11-24] MEDS ORDERED: DOCU-109 PO (21:49)
[2019-11-24] MEDS ORDERED: MAGN296S68 PO (21:49)
[2019-11-24] MEDS ORDERED: NA P133E2 RC (21:49)
[2019-11-24] MEDS ORDERED: DOCUSATE SODIUM 100 MG CAPSULE. PO ONE (22:00)
[2019-11-24 22:02] VITALS: BP 156/91
== END 2019-11-24 22:02 | disposition home or self-care (01) ==
LOC: ER 18:50
DX: K59.00 Constipation, unspecified (principal); R14.3 Flatulence; N20.0 Calculus of kidney; I70.0 Atherosclerosis of aorta; M16.12 Unilateral primary osteoarthritis, left hip; Z96.641 Presence of right artificial hip joint; E78.00 Pure hypercholesterolemia, unspecified; I10 Essential (primary) hypertension; I25.10 Atherosclerotic heart disease of native coronary artery without angina pectoris; Z95.1 Presence of aortocoronary bypass graft; Z95.5 Presence of coronary angioplasty implant and graft; Z88.0 Allergy status to penicillin; Z88.8 Allergy status to other drugs, medicaments and biological substances
CPT/HCPCS: 36415; 74177; 80048; 85025; 99285-25

== ENCOUNTER → 2020-05-13 | Outpatient (CLI) | payer OTHER, MEDICARE ==
[~2020-05-13] MED LIST changes: +AMLO-186 PO; -AMLO5TAB10 PO; +DOCU-109 PO; +MAGN296S68 PO; +NA P133E2 RC
--- NOTE | 2020-05-14 08:03 | RAD ---
US HEAD/NECK SOFT TISSUE Clinical Indication: Reason: NECK MASS / Spl. Instructions: / History: Comparison: None. TECHNIQUE: Real-time ultrasound imaging of the left neck is performed. Findings: At the area of palpable concern of the left neck just below the left ear there is a hypoechoic mass m easuring 2.4 x 1.9 x 1.4 cm cyst with mild internal blood flow. IMPRESSION: There is a hypoechoic mass at the area of palpable concern. From the images provided it is unclear of the relation of this mass to the parotid gland. The mass could be intraparotid or extraparotid. Cons iderations include abnormal lymph node, parotid neoplasm, or metastasis. CT soft tissue neck with con trast may provide further information. Mass is amenable to ultrasound-guided biopsy. Electronically signed by: Kwame Holder MD (05/14/2020 8:00 AM) [id number]
== END ==
LOC: US 12:23
PROVIDERS: ATTEND Family Medicine
DX: R22.1 Localized swelling, mass and lump, neck (principal)
CPT/HCPCS: 76536

== ENCOUNTER → 2020-06-01 | Outpatient (CLI) | payer OTHER, MEDICARE ==
[~2020-06-01] MED LIST changes: +IOHEXOL 300 MG/ML 100ML VIAL. IV ONE; -LISI-338 PO; +LISI-517 PO
--- NOTE | 2020-06-01 17:10 | KCIC ---
PQRS Compliance Statement: One or more of the following individualized dose reduction techniques were utilized for this examinat ion: 1. Automated exposure control 2. Adjustment of the mA and/or kV according to patient size 3. Use of iterative reconstruction technique CT NECK SOFT TISSUE WITH IV CONTRAST Clinical Indication: Reason: Mass Lt parotid gland, swelling . Area marked w/BB / History: Comparison: Soft tissue neck ultrasound May 13, 2020. TECHNIQUE: Helical CT imaging of the soft tissues of the neck is performed after 95 cc Omnipaque 300 IV contrast. Findings: There is a rim-enhancing fluid density in the inferior left parotid gland measuring 9 mm AP by 9 mm t ransverse by 11 mm craniocaudal. The metallic BB is superficial to this finding. If this is the same finding that was seen on recent ultrasound, it has decreased in size. The left parotid gland is enhan cing more than the right parotid gland. There is a punctate inferior left parotid sialolith, coronal image 31. The submandibular glands are symmetric. The thyroid gland is symmetric. There are median sternotomy w ires. The upper lungs are clear. There is chronic mural thrombus and mild atherosclerotic calcificati on at the bilateral carotid bifurcations. No cervical adenopathy is seen. There is degenerative spond ylosis of the cervical spine. IMPRESSION: The left parotid gland is mildly hyperenhancing compared to the left. At the area of palpable concern in the inferior left parotid gland there is a small rim-enhancing fluid density. There is a punctate sialolith just lateral. Considerations include parotitis with a small intraparotid abscess versus sm all parotid neoplasm. Electronically signed by: Kwame Holder MD (06/01/2020 5:07 PM) [id number]
== END ==
LOC: KCIC CT 08:18
PROVIDERS: ATTEND Family Medicine
DX: K11.5 Sialolithiasis (principal); R22.1 Localized swelling, mass and lump, neck; I70.0 Atherosclerosis of aorta; M47.812 Spondylosis without myelopathy or radiculopathy, cervical region
CPT/HCPCS: 70491; 82565; Q9967